=== PATIENT | male | born 1965 | race Two or more races ===

== ENCOUNTER 2017-09-02 17:27 | Emergency (ER) | payer OTHER ==
[~2017-09-02] VITALS: Ht 170.2 cm; Wt 95.3 kg
[~2017-09-02 17:27] MED LIST: ALBUTEROL17 GM; CIPRO500 MG PO; INTESTINEX680 MG PO; OSEL75CA PO; PROAIR HFA8.5 GM; SORBUTUSS LIQU473 ML PO
== END 2017-09-02 21:00 | disposition home or self-care (01) ==
LOC: ER 17:27
DX: N20.0 Calculus of kidney (principal); K57.90 Diverticulosis of intestine, part unspecified, without perforation or abscess without bleeding; R10.31 Right lower quadrant pain

== ENCOUNTER → 2017-11-29 | Emergency (ER) | payer OTHER ==
[~2017-11-29] VITALS: Ht 45.7 cm; Wt 93.9 kg
[~2017-11-29] MED LIST changes: +IRON1TAB4 PO; +SUSTIVA50 MG PO; +VASOTEC2.5 MG
== END | disposition home or self-care (01) ==
LOC: ER 10:17
DX: D64.9 Anemia, unspecified (principal)

== ENCOUNTER → 2018-10-27 | Emergency (ER) | payer OTHER ==
[~2018-10-27] VITALS: Ht 170.2 cm; Wt 93.0 kg
[~2018-10-27] MED LIST changes: +SUSTIVA600 MG
== END | disposition home or self-care (01) ==
LOC: ER 13:50
DX: J45.998 Other asthma (principal)

== ENCOUNTER 2025-01-27 07:06 | Emergency (ER) | payer OTHER ==
[~2025-01-27] VITALS: Ht 170.2 cm; Wt 91.2 kg
[~2025-01-27 07:06] MED LIST changes: +DICLOFENAC SOD100 MG PO; +NORFLEX100MG PO
[2025-01-27] MEDS ORDERED: KETOROLAC TROMETHAMINE 60 MG VIAL IM ONE ×2 (07:45→08:00)
[2025-01-27] MEDS ORDERED: CEFTRIAXONE SODIUM 1,000 MG VIAL IM ONE (07:45)
[2025-01-27] MEDS ORDERED: BENZOCAINE/MENTHOL 90 ML BOTTLE TOP ONE ×2 (07:45→08:00)
[2025-01-27] MEDS ORDERED: CEFTRIAXONE SODIUM 1,000 MG VIAL ONE (08:01)
[2025-01-27] MEDS ORDERED: LIDOCAINE HCL 1% 10ML VIAL ONE (08:08)
[2025-01-27] MEDS ORDERED: NIFEDIPINE 10 MG CAPSULE PO ONE (08:15)
[2025-01-27 08:55] LABS: BASO % 1.0 % (0.1-1.2); EOS # 0.14 (0.04-0.54); EOS % 3.5 % (0.7-7.0); LYMPH # 1.51 (1.18-3.74); LYMPH % 38.2 % (19.3-53.1); MEAN PLATELET VOLUME 9.40 fl (9.4-12.4); MONO # 0.35 (0.24-0.82); MONO % 8.9 % (4.7-12.5); NEUT # 1.90 (1.56-6.13); NEUT % 48.1 % (34.0-71.1); RED CELL DISTRIBUTION WIDTH 13.3 % (11.6-14.4)
[2025-01-27 10:04] LABS: ALT/SGPT 56.0 U/L (12-78); AST/SGOT 32.0 U/L (15-37); BILIRUBIN TOTAL 0.39 mg/dL (0.3-1.2); BUN CREA RATIO 15.0 (7.0-25.0); CREATININE SERUM 0.99 mg/dL (0.70-1.30); GFR 76.85; GLOBULINA 4.1 G/DL (2.4-3.5); GLUCOSE FASTING 107.0 mg/dL (65-100); OSMOLALITY SERUM 290.0 MOSM/KG (275-295)
[2025-01-27] MEDS ORDERED: CEFUROXIME500 MG PO (10:25)
[2025-01-27] MEDS ORDERED: PEPCID AC20 MG PO (10:25)
== END 2025-01-27 10:50 | disposition home or self-care (01) ==
LOC: ER 07:07
PROVIDERS: General Practice
DX: T23.202A Burn of second degree of left hand, unspecified site, initial encounter (principal); T31.0 Burns involving less than 10% of body surface; X10.2XXA Contact with fats and cooking oils, initial encounter; Y93.G3 Activity, cooking and baking; Y92.89 Other specified places as the place of occurrence of the external cause; Y99.9 Unspecified external cause status; I10 Essential (primary) hypertension; Z87.09 Personal history of other diseases of the respiratory system; B20 Human immunodeficiency virus [HIV] disease